=== PATIENT | male | born 1990 | race African-American/Black ===

== ENCOUNTER 2019-09-01 20:17 | Emergency (ER) | payer SELFPAY ==
[2019-09-01 20:58] LABS: #Basophils 0.1 thou/uL (0.0-0.2); #Eosinphils 0.1 thou/uL (0.0-0.7); #Lymphocytes 2.1 thou/uL (1.20-3.40); #Monocytes 0.9 thou/uL (0.11-0.59); #Neutrophils 5.9 thou/uL (1.40-6.50); %Basophils 0.9 % (0.0-1.0); %Eosinophils 1.3 % (0.0-10.0); %Lymphocytes 23.7 % (21.0-51.0); %Monocytes 9.4 % (0.0-10.0); %Neutrophils 64.7 % (42.0-75.0); Hemoglobin 14.9 g/dL (14.0-18.0); Mean Corpuscular HGB CONC 30.9 g/dL (32.0-36.0); Mean Corpuscular Hemoglobin 24.4 pg (27.0-31.0); Mean Platelet Volume 9.9 fL (7.4-10.4); Platelet Count 193 thou/uL (130-400); RBC Distribution Width 12.7 % (11.5-14.5); Red Blood Cell (RBC) Count 6.11 mill/uL (4.70-6.10)
[2019-09-01 21:26] LABS: ALT (SGPT) 37 U/L (8-55); AST (SGOT) 27 U/L (5-34); Albumin 4.3 g/dL (3.5-5.0); Alkaline Phosphatase 83 U/L (40-110); Anion Gap 15 mmol/L (10-20); BUN (Urea Nitrogen) 13 mg/dL (8.9-20.6); Bilirubin, Total 0.4 mg/dL (0.2-1.2); CK (CPK) 655 U/L (30-200); Calc. Creatinine Clearance 0 mL/min (70-130); Calcium 9.2 mg/dL (7.8-10.44); Carbon Dioxide 24 mmol/L (22-29); Chloride 106 mmol/L (98-107); Estimated GFR-MDRD 76; Globulin 3.1 g/dL (2.4-3.5); Glucose 93 mg/dL (70-105); Potassium 3.6 mmol/L (3.5-5.1); Protein, Total 7.4 g/dL (6.0-8.3); Sodium 141 mmol/L (136-145)
--- NOTE | 2019-09-01 22:00 | RAD ---
RADIOGRAPH CHEST 1 VIEW: DATE: 09/01/2019 TIME: 10:13 PM HISTORY: 28-year-old male with chest pain COMPARISON: none FINDINGS: There is airspace density at the right medial lung base. Most of this projects inferior to the right hemidiaphragm, and therefore this is incompletely imaged on 1 frontal view projection. The rest of the lungs are clear. No pneumothorax. Lateral costophrenic angles are sharp. IMPRESSION: Atelectasis versus pneumonia at right lung base, incompletely imaged.
[2019-09-01 22:17] LABS: Bacteria/HPF None Seen HPF (None Seen); Bilirubin Negative (Negative); Blood, Urine Negative (Negative); Clarity Clear (Clear); Glucose, Urine (Dipstick) Normal (Negative); Leukocyte Negative Leu/uL (Negative); Nitrite Negative (Negative); Protein, Urine (Dipstick) 30 mg/dL (Neg-Trace); RBC/HPF None Seen HPF (0-3); Squamous Epithelial 0-3 HPF (0-3); Urobilinogen 3 mg/dL (Less than 2); WBC/HPF 0-3 HPF (0-3)
--- NOTE | 2019-09-01 23:47 | ULT ---
ULTRASOUND ABDOMEN LIMITED: (RIGHT UPPER QUADRANT) DATE: 09/01/2019 11:28 PM HISTORY: 28-year-old male with right upper quadrant abdominal pain FINDINGS: Gallbladder:Contracted with thickened wall 4 mm. Common duct: 5 mm. Liver:Normal sonographic appearance. Pancreas:Completely obscured by shadowing from bowel gas. Right kidney:Large number of cystic lesions, on the order of 2 to 3 cm in size each, throughout the c ortex at the upper, mid, and lower poles. Thin, irregular, lobulated cortical margins. Renal pelvis obscured by shadowing from bowel gas. Probably no hydronephrosis. (Right ureteral jet demonstrated in the urinary bladder). Body Presser has submitted a single sagittal images of the relatively normal-appearing contralateral left kidney for comparison. IMPRESSION: 1) very abnormal right kidney with large number of cysts, thin parenchyma, and lobulated margins. 2) gallbladder is contracted because patient is not NPO.
== END 2019-09-02 00:25 | disposition home or self-care (01) ==
LOC: EDBD 20:17 → ERS 20:17
DX: J15.9 Unspecified bacterial pneumonia (principal); Q61.3 Polycystic kidney, unspecified; I10 Essential (primary) hypertension; F41.9 Anxiety disorder, unspecified
CPT/HCPCS: 36415; 71045; 76705; 80053; 81003; 81015; 82550; 84484; 85025; 93005; 94760